=== PATIENT | female | born 1975 | race Caucasian/White ===

== ENCOUNTER → 2016-10-16 | Outpatient (CLI) | payer OTHER | LOC: MAMMO 10:06 | DX: Z12.31 Encounter for screening mammogram for malignant neoplasm of breast (principal) | CPT/HCPCS: G0202 ==

== ENCOUNTER → 2017-10-16 | Outpatient (CLI) | payer OTHER ==
[~2017-10-16] VITALS: Ht 165.1 cm; Wt 68.2 kg
[2017-10-16 16:09] VITALS: BP 105/57
--- NOTE | 2017-10-16 16:10 | NUR ---
DR WALDEN NOTIFIED PT EKG READING SINUS PAPI WITH RATE OF 45. HE REQUESTS PT RETURN TO CLINIC WITH COPY OF EKG. PT ESCORTED BACK TO CLINIC
[2017-10-16 16:18] LABS: BUN/CREATININE RATIO 24.6 (6.0-26.0); CALCIUM 8.8 mg/dL (8.4-10.2)
== END ==
LOC: AMSURD 15:23
PROVIDERS: Family Medicine
DX: R55 Syncope and collapse (principal); R11.0 Nausea

== ENCOUNTER → 2017-10-21 | Outpatient (CLI) | payer OTHER ==
[~2017-10-21] VITALS: Ht 165.1 cm; Wt 68.2 kg
[2017-10-21 12:39] VITALS: BP 94/61
== END ==
LOC: AMSURD 11:00
DX: R00.2 Palpitations (principal)

== ENCOUNTER → 2017-11-27 | Outpatient (CLI) | payer OTHER ==
[2017-10-21 12:39] VITALS: BP 94/61
[2017-11-27 17:28] LABS: CALCIUM 9.1 mg/dL (8.4-10.2)
== END ==
LOC: LAB 15:55
PROVIDERS: Internal Medicine Cardiovascular Disease
DX: Z51.81 Encounter for therapeutic drug level monitoring (principal); Z92.29 Personal history of other drug therapy

== ENCOUNTER → 2019-09-21 | Outpatient (CLI) | payer BC ==
[2017-10-21 12:39] VITALS: BP 94/61
== END ==
LOC: MAMMO 14:30
DX: Z12.31 Encounter for screening mammogram for malignant neoplasm of breast (principal)

== ENCOUNTER → 2019-11-19 | Outpatient (CLI) | payer BC ==
[2017-10-21 12:39] VITALS: BP 94/61
[2019-11-19 16:32] LABS: ALBUMIN 4.6 g/dL (3.5-5.0)
[2019-11-19 16:33] LABS: CALCIUM 9.4 mg/dL (8.3-10.5)
[2019-11-19 16:35] LABS: TOTAL PROTEIN 7.4 g/dL (6.4-8.3)
[2019-11-19 16:37] LABS: TOTAL BILIRUBIN 0.7 mg/dL (0.2-1.2)
== END ==
LOC: LAB 10:34
PROVIDERS: Family Medicine
DX: Z00.00 Encounter for general adult medical examination without abnormal findings (principal); Z12.39 Encounter for other screening for malignant neoplasm of breast; Z13.6 Encounter for screening for cardiovascular disorders; Z13.1 Encounter for screening for diabetes mellitus; I95.9 Hypotension, unspecified; J45.990 Exercise induced bronchospasm; R55 Syncope and collapse

== ENCOUNTER → 2020-01-26 | Outpatient (CLI) | payer BC ==
[2017-10-21 12:39] VITALS: BP 94/61
== END ==
LOC: LAB 11:19
DX: R05 Cough (principal); R53.83 Other fatigue; Z20.828 Contact with and (suspected) exposure to other viral communicable diseases

== ENCOUNTER → 2020-07-06 | Outpatient (CLI) | payer BC ==
[2017-10-21 12:39] VITALS: BP 94/61
[2020-07-06 16:49] LABS: EOS # 0.3 (0.04-0.40); EOS % 3.2 % (1.0-5.0); HEMOGLOBIN 12.6 g/dL (12.5-16.0); MEAN CELL VOLUME 93 fl (78-100); MEAN CORPUSCULAR HEMOGLOBIN 30 pg (27-31); MEAN CORPUSCULAR HGB CONC 32 g/dL (33-37); MEAN PLATELET VOLUME 10.7 fl (7.4-10.4); MONO # 0.7 (0.20-0.80); NEU # 5.7 (1.40-6.50); PLATELET COUNT 250 K/mm3 (130-400); RED BLOOD COUNT 4.19 M/mm3 (4.10-5.30); RED CELL DISTRIBUTION WIDTH 12.2 % (11.5-14.5); WHITE BLOOD COUNT 8.7 K/mm3 (4.8-10.8)
[2020-07-06 16:59] LABS: ALBUMIN 4.4 g/dL (3.5-5.0); POTASSIUM 3.9 mmol/L (3.5-5.1)
[2020-07-06 17:01] LABS: CALCIUM 9.2 mg/dL (8.3-10.5)
[2020-07-06 17:02] LABS: TOTAL PROTEIN 7.2 g/dL (6.4-8.3)
[2020-07-06 17:04] LABS: TOTAL BILIRUBIN 0.4 mg/dL (0.2-1.2)
== END ==
LOC: LAB 16:37
PROVIDERS: Family Medicine
DX: E16.1 Other hypoglycemia (principal)

== ENCOUNTER → 2021-01-12 | Outpatient (CLI) | payer BC ==
[2021-01-12 06:57] LABS: URINE APPEARANCE CLEAR; URINE BILIRUBIN NEGATIVE (NEGATIVE); URINE BLOOD NEGATIVE (NEGATIVE); URINE COLOR YELLOW; URINE GLUCOSE NEGATIVE (NEGATIVE); URINE KETONE NEGATIVE (NEGATIVE); URINE LEUKOCYTE ESTERASE NEGATIVE (NEGATIVE); URINE NITRATE NEGATIVE (NEGATIVE); URINE PROTEIN(semi-quant) NEGATIVE (NEGATIVE); URINE UROBILINOGEN NORMAL (NORMAL)
== END ==
LOC: LAB 05:53
PROVIDERS: Family Medicine
DX: E16.1 Other hypoglycemia (principal); R16.1 Splenomegaly, not elsewhere classified; R11.0 Nausea

== ENCOUNTER → 2021-01-12 | Emergency (ER) | payer BC | LOC: ED 05:47 | DX: R69 Illness, unspecified (principal) ==

== ENCOUNTER → 2021-02-02 | Outpatient (CLI) | payer BC | LOC: LAB 14:07 | DX: E07.9 Disorder of thyroid, unspecified (principal) ==

== ENCOUNTER → 2021-02-28 | Outpatient (CLI) | payer BC ==
[2021-02-28 12:46] LABS: ALBUMIN 4.4 g/dL (3.5-5.0); POTASSIUM 3.8 mmol/L (3.5-5.1)
[2021-02-28 12:47] LABS: CALCIUM 9.3 mg/dL (8.3-10.5)
[2021-02-28 12:49] LABS: TOTAL PROTEIN 7.5 g/dL (6.4-8.3)
[2021-02-28 12:50] LABS: TOTAL BILIRUBIN 0.5 mg/dL (0.2-1.2)
[2021-02-28 13:52] LABS: BASO # 0.03 K/mm3 (0.02-0.10); EOS % 1.3 % (1.0-5.0); HEMATOCRIT 40.1 % (37.0-47.0); HEMOGLOBIN 13.2 g/dL (12.5-16.0); LYMPH# 1.88 K/mm3 (1.50-4.00); MEAN CELL VOLUME 94 fl (78-100); MEAN CORPUSCULAR HEMOGLOBIN 31 pg (27-31); MEAN CORPUSCULAR HGB CONC 33 g/dL (33-37); MEAN PLATELET VOLUME 11.8 fl (7.4-10.4); MONO # 0.52 K/mm3 (0.20-0.80); NEU # 5.39 K/mm3 (1.40-6.50); PLATELET COUNT 253 K/mm3 (130-400); RED BLOOD COUNT 4.28 M/mm3 (4.10-5.30); WHITE BLOOD COUNT 7.9 K/mm3 (4.8-10.8)
[2021-03-01 01:18] LABS: T3 TOTAL 78 ng/dL (35-193)
[2021-03-01 01:35] LABS: CORTISOL RANDOM 9 ug/dL (3-20)
[2021-03-01 11:42] LABS: INSULIN 4 uIU/mL (2-23)
[2021-03-02 22:05] LABS: ADRENOCORTICOTROPIC HORMONE 15 pg/mL (5-27)
[2021-03-05 13:38] LABS: GLUTAMIC ACID DECARB 65 AB AMS
== END ==
LOC: LAB 11:51
PROVIDERS: Internal Medicine
DX: E16.2 Hypoglycemia, unspecified (principal)

== ENCOUNTER → 2021-09-27 | Outpatient (CLI) | payer BC ==
[2021-09-27 20:22] LABS: INSULIN 3 uIU/mL (2-23)
== END ==
LOC: LAB 06:18
PROVIDERS: Internal Medicine
DX: E16.2 Hypoglycemia, unspecified (principal)

== ENCOUNTER → 2022-02-04 | Outpatient (CLI) | payer BC | LOC: MAMMO 11:39 | DX: Z12.31 Encounter for screening mammogram for malignant neoplasm of breast (principal) ==

== ENCOUNTER → 2023-07-11 | Outpatient (CLI) | payer BC ==
[~2023-07-11] MED LIST: Iohexol 300 - 100 ML VIAL IV ONE
[2023-07-11 10:11] LABS: ALBUMIN 4.4 g/dL (3.5-5.0)
[2023-07-11 10:12] LABS: SODIUM 139 mmol/L (136-145)
[2023-07-11 10:13] LABS: CALCIUM 9.9 mg/dL (8.3-10.5)
[2023-07-11 10:14] LABS: GLUCOSE 92 mg/dL (65-105); TOTAL PROTEIN 7.1 g/dL (6.4-8.3)
[2023-07-11 10:15] LABS: CARBON DIOXIDE 24 mmol/L (22-29)
[2023-07-11 10:16] LABS: TOTAL BILIRUBIN 0.4 mg/dL (0.2-1.2)
[2023-07-11 10:19] LABS: AST-SGOT 18 U/L (5-34)
[2023-07-11 10:21] LABS: ALT/SGPT 17 U/L (0-55)
[2023-07-11 10:31] LABS: BASO # 0.02 K/mm3 (0.02-0.10); EOS # 0.11 K/mm3 (0.04-0.40); EOS % 1.7 % (1.0-5.0); HEMATOCRIT 40.1 % (37.0-47.0); HEMOGLOBIN 12.9 g/dL (12.5-16.0); LYMPH# 1.25 K/mm3 (1.50-4.00); MEAN CELL VOLUME 95 fl (78-100); MEAN CORPUSCULAR HEMOGLOBIN 31 pg (27-31); MEAN CORPUSCULAR HGB CONC 32 g/dL (33-37); MEAN PLATELET VOLUME 11.2 fl (7.4-10.4); MONO # 0.48 K/mm3 (0.20-0.80); NEU # 4.67 K/mm3 (1.40-6.50); PLATELET COUNT 262 K/mm3 (130-400); RED BLOOD COUNT 4.22 M/mm3 (4.10-5.30); RED CELL DISTRIBUTION WIDTH 11.9 % (11.5-14.5); WHITE BLOOD COUNT 6.5 K/mm3 (4.8-10.8)
== END ==
LOC: LAB 09:33 → RAD 09:33
PROVIDERS: Nurse Practitioner
DX: E16.1 Other hypoglycemia (principal); R10.9 Unspecified abdominal pain
CPT/HCPCS: Q9967

== ENCOUNTER → 2024-01-24 | Outpatient (CLI) | payer BC ==
[~2024-01-24] MED LIST changes: +CEPHALEXIN500 M1 PO; -Iohexol 300 - 100 ML VIAL IV ONE
[2024-01-24 07:28] LABS: BASO # 0.01 K/mm3 (0.02-0.10); EOS % 1.7 % (1.0-5.0); HEMATOCRIT 39.2 % (37.0-47.0); LYMPH# 1.43 K/mm3 (1.50-4.00); MEAN CELL VOLUME 93 fl (78-100); MEAN CORPUSCULAR HEMOGLOBIN 31 pg (27-31); MEAN CORPUSCULAR HGB CONC 33 g/dL (33-37); MEAN PLATELET VOLUME 10.5 fl (7.4-10.4); MONO # 0.47 K/mm3 (0.20-0.80); NEU # 3.98 K/mm3 (1.40-6.50); PLATELET COUNT 224 K/mm3 (130-400); RED BLOOD COUNT 4.22 M/mm3 (4.10-5.30); RED CELL DISTRIBUTION WIDTH 11.7 % (11.5-14.5)
[2024-01-27 10:49] LABS: ALBUMIN 4.3 g/dL (3.5-5.0)
[2024-01-27 10:50] LABS: SODIUM 136 mmol/L (136-145)
[2024-01-27 10:51] LABS: CALCIUM 9.2 mg/dL (8.3-10.5)
[2024-01-27 10:52] LABS: GLUCOSE 85 mg/dL (65-105); TOTAL PROTEIN 6.9 g/dL (6.4-8.3)
[2024-01-27 10:53] LABS: CARBON DIOXIDE 20 mmol/L (22-29)
[2024-01-27 10:54] LABS: TOTAL BILIRUBIN 0.6 mg/dL (0.2-1.2)
[2024-01-27 10:57] LABS: AST-SGOT 18 U/L (5-34)
[2024-01-27 10:58] LABS: ALT/SGPT 16 U/L (0-55)
== END ==
LOC: LAB 07:05
PROVIDERS: Nurse Practitioner
DX: Z00.00 Encounter for general adult medical examination without abnormal findings (principal); Z13.220 Encounter for screening for lipoid disorders; E16.1 Other hypoglycemia; M25.50 Pain in unspecified joint; E55.9 Vitamin D deficiency, unspecified

== ENCOUNTER → 2024-01-30 | Outpatient (CLI) | payer BC | LOC: MAMMO 08:00 | DX: Z12.31 Encounter for screening mammogram for malignant neoplasm of breast (principal) ==